=== PATIENT | male | born 2000 | race Caucasian/White ===

== ENCOUNTER 2021-01-24 06:22 | Emergency (ER) | payer OTHER ==
[~2021-01-24 06:22] MED LIST: AMOXICILLIN875 MG PO; DIFLUCAN150 M1 PO; MEDROL 4MG DOSEP4 MG PO; NYSTATIN 30GM C30 GM TOP
== END 2021-01-24 08:20 | disposition home or self-care (01) ==
LOC: FER 06:22
DX: K52.9 Noninfective gastroenteritis and colitis, unspecified (principal); Z20.822 Contact with and (suspected) exposure to COVID-19
CPT/HCPCS: 99284; U0002

== ENCOUNTER 2022-02-20 13:35 | Emergency (ER) | payer SELFPAY ==
[2022-02-20 15:06] LABS: BASOPHIL 0.5 % (0-2); EOSINOPHIL 0.3 % (0-5); HCT 40.7 % (42.0-52.0); HGB 14.4 g/dl (13.2-18.0); LYMPHOCYTE 13.5 % (15-48); MCH 31.4 pg (25.0-31.0); MCHC 35.4 g/dL (32.0-36.0); MCV 88.7 fL (78.0-100.0); MONOCYTE 11.9 % (0-12); MPV 8.9 fL (6.0-9.5); NEUTROPHIL 73.3 % (41-80); NRBC 0; PLT 207 K/uL (150-400); RBC 4.59 M/uL (4.70-6.00); RDW 12.1 % (11.5-14.0)
[2022-02-20 15:32] LABS: POTASSIUM 3.4 mmol/L (3.5-5.1)
[2022-02-20 15:37] LABS: LACTIC ACID 1.7 mmol/L (0.4-1.9)
[2022-02-20 16:06] LABS: BILIRUBIN NEGATIVE (NEGATIVE); BLOOD NEGATIVE Ery/uL (NEGATIVE); CLARITY HAZY (CLEAR); COLOR YELLOW (YELLOW); GLUCOSE (U) NORMAL (NORMAL); LEUKOCYTES NEGATIVE Leu/uL (NEGATIVE); NITRITE NEGATIVE (NEGATIVE); PROTEIN NEGATIVE (NEGATIVE); SPECIFIC GRAVITY <=1.005 (1.001-1.030); UROBILINOGEN 0.2 mg/dL (0.2-1.0)
[2022-02-20 16:06] LABS: CORONAVIRUS 2019 SARS-COV-2 NEGATIVE (NEGATIVE); INFLUENZA A NAA POSITIVE (NEGATIVE)
== END 2022-02-20 17:29 | disposition home or self-care (01) ==
LOC: FER 13:35
PROVIDERS: Nurse Practitioner Family
DX: J10.1 Influenza due to other identified influenza virus with other respiratory manifestations (principal); Z20.822 Contact with and (suspected) exposure to COVID-19; Z88.1 Allergy status to other antibiotic agents; Z28.310 Unvaccinated for COVID-19
CPT/HCPCS: 36415; 71045; 80048; 81003; 83605; 85025; 87040; 87880; J7030; U0002